=== PATIENT | female | born 1975 | race African-American/Black ===

== ENCOUNTER → 2017-09-14 | Emergency (ER) | payer OTHER ==
[~2017-09-14] MED LIST: KETOROLAC TROMETHAMINE 60 MG/2 ML VIAL IM ONE; KETOROLAC TROMETHAMINE 60 MG/2 ML VIAL ONE
[2017-09-14 17:29] VITALS: BP 111/59; PULSE 95; TEMP 98; BMI 29.5
--- NOTE | 2017-09-14 17:55 | PDOC ---
History of Present Illness - General Chief Complaint: Pain Stated Complaint: FALL INJURY Time Seen by Provider: 09/14/17 17:34 History Source: Patient - History of Present Illness Occurred: reports: just prior to arrival Severity: reports: moderate Pain Location: reports: lower extremity Method of Injury: Yes: fall Past History - Past Medical History Allergies/Adverse Reactions: Allergies Allergy/AdvReac Type Severity Reaction Status Date / Time No Known Drug Allergies Allergy Verified 10/08/15 16:38 MUSHROOMS Allergy Swelling Uncoded 09/14/17 17:29 Home Medications: Ambulatory Orders Albuterol Sulfate Inhaler - [Ventolin Hfa Inhaler -] 1 - 2 inh PO Q4H #1 inhaler 10/08/15 Azithromycin [Zithromax 250mg Tablets -] 250 mg PO UTDICT #6 tab 10/08/15 - Immunization History Immunization Up to Date: No - Suicide/Smoking/Psychosocial Hx Smoking Status: No Smoking History: Never smoked Have you smoked in the past 12 months: No Number of Cigarettes Smoked Daily: 4 Information on smoking cessation initiated: No 'Breaking Loose' booklet given: 10/08/15 Hx Alcohol Use: No Drug/Substance Use Hx: No Substance Use Type: None Review of Systems - Review of Systems Musculoskeletal: Yes: Joint Pain, Joint Swelling. No: Back Pain, Neck Pain Neurological: No: Headache, Dizziness *Physical Exam - Vital Signs Last Vital Signs Temp Pulse Resp BP Pulse Ox 98.0 F 95 H 16 111/59 98 09/14/17 17:27 09/14/17 17:27 09/14/17 17:27 09/14/17 17:27 09/14/17 17:27 - Physical Exam General Appearance: Yes: Appropriately Dressed, Mild Distress HEENT: positive: Normal Voice Neck: positive: Supple. negative: Tender, Decreased range of motion Respiratory/Chest: negative: Respiratory Distress Gastrointestinal/Abdominal: positive: Soft. negative: Tender Extremity: positive: Tender (to knee b/l, L>>R), Swelling, Other (no ttp/ swelling to R hip) Integumentary: positive: Dry, Warm Neurologic: positive: Fully Oriented, Alert, Normal Mood/Affect Medical Decision Making - Medical Decision Making 09/14/17 17:59 41 yo F, no sig hx, here w/ multiple injuries s/p fall this afternoon where pt slipped on water outdoors and fell, landing on knees. C/o b/l knee pain, L>R and R hip pain. Able to bear weight but painful. Denies any other injuries at this time See exam M/l knee/hip strain s/p [facility] fall -pain control -XRs 09/14/17 19:34 X-rays reviewed by myself and does not show any obvious fractures. Patient states pain improved with Toradol. Yoel bandage place to left knee. DC to take [id number] medication as needed for pain and to follow-up with orthopedic in 2 weeks if pain persists *DC/Admit/Observation/Transfer Diagnosis at time of Disposition: Knee sprain, bilateral - Discharge Dispostion Disposition: HOME Condition at time of disposition: Good - Referrals Referrals: Baron Rao MD [Staff Physician] - - Patient Instructions Additional Instructions: Your x-rays did not show any fracture. You most likely suffered sprains. Take Motrin or Tylenol [id number] as needed for pain. If pain persists after 2 weeks. Please follow-up with Dr. Rao of orthopedics - Post Discharge Activity Forms/Work/School Notes: Back to Work
== END | disposition home or self-care (01) ==
LOC: JERFT 17:10
PROC: 3E0233Z Introduction of Anti-inflammatory into Muscle, Percutaneous Approach (ICD-10-PCS; principal; 2017-09-14)
DX: S83.8X2A Sprain of other specified parts of left knee, initial encounter (principal); S83.8X1A Sprain of other specified parts of right knee, initial encounter; W01.0XXA Fall on same level from slipping, tripping and stumbling without subsequent striking against object, initial encounter; Y93.89 Activity, other specified; Y92.89 Other specified places as the place of occurrence of the external cause; Y99.8 Other external cause status
CPT/HCPCS: 73523-TC-FY; 73562-TC-LT-FY; 73562-TC-RT-FY; 84703; 96372; 99281-25